=== PATIENT | female | born 1990 | race Caucasian/White ===

== ENCOUNTER 2019-03-23 08:22 | Emergency (ER) | payer SELFPAY ==
--- NOTE | 2019-03-23 09:27 | ER Document Report ---
ED Medical Screen (RME) - General Chief Complaint: Abdominal Pain Stated Complaint: ABDOMINAL PAIN Time Seen by Provider: 03/23/19 09:17 Mode of Arrival: Ambulatory Information source: Patient, Relative TRAVEL OUTSIDE OF THE [place] IN LAST 30 DAYS: No - HPI Patient complains to provider of: LEFT PELVIC PAIN Notes: 03/23/19 09:24 Patient is here with a relative at the bedside is helping with communication as the patient speaks French. Patient here with complaints of left pelvic pain. Pain started yesterday. It has been constant and moderate. Nothing makes it better or worse. She had nausea and vomited once. No diarrhea. No dysuria or hematuria. Last normal menstrual period was sometime in December. She states that she took a test in January, this was negative. She has had one prior that ended in miscarriage. No history of ectopic . No fever. Exam Nontoxic, no distress. Lungs clear and equal throughout. Heart sounds normal. Left lower quadrant/pelvic tenderness on limited triage abdominal exam. Plan CBC, CMP, lipase, urinalysis. Urine . This the patient is having pelvic pain and has a history of ovarian cysts I have ordered a pelvic ultrasound. This would evaluate for cysts/ovarian torsion. If she ends up being , this would also evaluate for ectopic . An initial examination was made on the patient as part of the triage process, and it was determined a more comprehensive evaluation was necessary. Initial labs were ordered and patient was transferred to another provider in the ED who assumed care and finished evaluation and plan. - Related Data Allergies/Adverse Reactions: No Known Allergies Allergy (Verified 03/23/19 08:24) Physical Exam - Vital signs Vitals: Temp Pulse Resp BP Pulse Ox 98.0 F 76 16 104/63 100 03/23/19 08:28 03/23/19 08:28 03/23/19 08:28 03/23/19 08:28 03/23/19 08:28 Course - Vital Signs Vital signs: Temp Pulse Resp BP Pulse Ox 98.0 F 76 16 104/63 100 03/23/19 08:28 03/23/19 08:28 03/23/19 08:28 03/23/19 08:28 03/23/19 08:28
[2019-03-23 09:59] LABS: ABSOLUTE LYMPHOCYTES (AUTO) 1.2 10^3/uL (0.5-4.7); ABSOLUTE MONOCYTES (AUTO) 0.2 10^3/uL (0.1-1.4); ABSOLUTE NEUT (AUTO) 5.4 10^3/uL (1.7-8.2); BASOPHILS % (AUTO) 0.2 % (0-2); HEMATOCRIT 37.8 % (36.0-47.0); HEMOGLOBIN 12.8 g/dL (12.0-15.5); LYMPHOCYTES % (AUTO) 17.2 % (13-45); MEAN CORPUSCULAR HEMOGLOBIN 29.7 pg (27.0-33.4); MEAN CORPUSCULAR HGB CONC 33.8 g/dL (32.0-36.0); MEAN CORPUSCULAR VOLUME 88 fl (80-97); MONOCYTES % (AUTO) 2.9 % (3-13); PLATELET COUNT 234 10^3/uL (150-450); RED BLOOD COUNT 4.29 10^6/uL (3.72-5.28); SEGMENTED NEUTROPHILS % (AUTO) 79.7 % (42-78); TOTAL CELLS COUNTED % (AUTO) 100 %; WHITE BLOOD COUNT 6.8 10^3/uL (4.0-10.5)
[2019-03-23 10:07] LABS: APPEARANCE,URINE SLIGHTLY-CLOUDY; BILIRUBIN,URINE NEGATIVE (NEGATIVE); COLOR,URINE YELLOW; GLUCOSE, URINE NEGATIVE (NEGATIVE); KETONES,URINE TRACE mg/dL (NEGATIVE); LEUKOCYTE ESTERASE,URINE NEGATIVE (NEGATIVE); NITRITE,URINE NEGATIVE (NEGATIVE); PROTEIN,URINE NEGATIVE (NEGATIVE); URINE SPECIFIC GRAVITY 1.018; UROBILINOGEN,URINE NEGATIVE mg/dL (<2.0)
--- NOTE | 2019-03-23 10:13 | RADIOLOGY REPORT (SQ) ---
EXAM DESCRIPTION: U/S NON OB PEL TV W/DOPPLER COMPLETED DATE/TIME: 03/23/2019 9:58 am REASON FOR STUDY: pelvic pain COMPARISON: None. TECHNIQUE: Dynamic and static grayscale images acquired of the pelvis via transvaginal approach and recorded on PACS. Additional selected color Doppler and spectral images recorded. LIMITATIONS: None. FINDINGS: UTERUS: Contour normal. No mass. ENDOMETRIAL STRIPE: No focal or generalized thickening. No masses. CERVIX: No nabothian cysts. RIGHT OVARY AND DOPPLER: Normal size. No worrisome masses. Normal arterial vascular flow without evid ence for torsion. LEFT OVARY AND DOPPLER: Normal vascular flow. 2.5 cm cyst. FREE FLUID: Minimal free fluid knee adnexum. OTHER: No other significant finding. MEASUREMENTS: UTERUS: 9.3 cm ENDOMETRIAL STRIPE: 1.2 cm RIGHT OVARY: 2.5 cm LEFT OVARY: 5.8 cm IMPRESSION: 2.5 cm left ovarian cyst. Minimal free fluid both adnexum. . COMMENT: Followup of asymptomatic benign ovarian cysts detected by ultrasound in PREMENOPAUSAL jesse ents Simple cyst: *? 5 cm: no followup *Note: If cyst is clinically symptomatic or otherwise concerning, other followup may be warranted. Based on recommendations of the Society for Radiologists in Ultrasound Consensus Conference Statement 2010 on management of asymptomatic ovarian and other adnexal cysts imaged at ultrasound. TECHNICAL DOCUMENTATION: JOB ID: [id number] [employer]- All Rights Reserved Rev-04/06 Reading location - IP/workstation name: [email or web address]
[2019-03-23] MEDS ORDERED: KETOROLAC TROMETHAMINE 60 MG/2 ML SDV IM ONE (10:16)
[2019-03-23 10:17] LABS: ALANINE AMINOTRANSFERASE 27 U/L (9-52); ALBUMIN 4.1 g/dL (3.5-5.0); ALKALINE PHOSPHATASE 47 U/L (38-126); ANION GAP 9 (5-19); ASPARTATE AMINO TRANSFERASE 19 U/L (14-36); BILIRUBIN,DIRECT 0.1 mg/dL (0.0-0.4); BILIRUBIN,TOTAL 0.4 mg/dL (0.2-1.3); BLOOD UREA NITROGEN 13 mg/dL (7-20); CALCIUM 9.4 mg/dL (8.4-10.2); CARBON DIOXIDE 27 mmol/L (22-30); CHLORIDE 103 mmol/L (98-107); GLUCOSE 98 mg/dL (75-110); LIPASE 46.3 U/L (23-300); POTASSIUM 3.9 mmol/L (3.6-5.0); SODIUM 138.9 mmol/L (137-145); TOTAL PROTEIN 7.1 g/dL (6.3-8.2)
[2019-03-23] MEDS ORDERED: ONDANSETRON 4 MG TAB.RAPDIS PO ONE (10:35)
--- NOTE | 2019-03-23 10:40 | ER Document Report ---
ED General - General Chief Complaint: Abdominal Pain Stated Complaint: ABDOMINAL PAIN Time Seen by Provider: 03/23/19 09:17 Primary Care Provider: [facility] [Provider Group] - Follow up in 3-5 days Mode of Arrival: Ambulatory Information source: Patient, Relative Notes: 29-year-old female with history of ovarian cyst presents with complaint of left lower quadrant abdominal pain that started 1 day prior to arrival. Patient describes it as stabbing, constant and associated with nausea. Patient's last menstrual period was in January 2019. Patient denies any fever, chills, chest pain, shortness of breath, dysuria, hematuria, vaginal discharge. She is not currently sexually active. Patient's last bowel movement was yesterday. She denies any black or bloody stools or history of constipation. TRAVEL OUTSIDE OF THE [place] IN LAST 30 DAYS: No - HPI Onset: Yesterday Onset/Duration: Gradual, Persistent, Worse Quality of pain: Cramping, Stabbing Severity: Moderate Associated symptoms: Nausea. denies: Chest pain, Diarrhea, Vomiting, Shortness of breath Exacerbated by: Denies Relieved by: Denies Similar symptoms previously: Yes Recently seen / treated by doctor: No - Related Data Allergies/Adverse Reactions: No Known Allergies Allergy (Verified 03/23/19 08:24) Past Medical History - General Information source: Patient, Relative - Social History Smoking Status: Never Smoker Chew tobacco use (# tins/day): No Frequency of alcohol use: None Drug Abuse: None Lives with: Family Family History: Reviewed & Not Pertinent Patient has suicidal ideation: No Patient has homicidal ideation: No Renal/ Medical History: Reports: Hx Ovarian Cysts. Denies: Hx Peritoneal Dialysis Review of Systems - Review of Systems Notes: REVIEW OF SYSTEMS: CONSTITUTIONAL : Denies fever, chills, or sweats. Denies recent illness. Denies weight loss, recent hospitalizations. EENT: Denies visual changes, eye pain. Denies sore throat, oral lesions, difficulty swallowing. CARDIOVASCULAR: Denies chest pain. Denies palpitations. Denies lower extremity edema. RESPIRATORY: Denies cough. Denies shortness of breath, wheezing. GASTROINTESTINAL: Denies abdominal distention. Denies vomiting, or diarrhea. Denies blood in vomitus, stools, or per rectum. Denies black, tarry stools. Denies constipation. GENITOURINARY: Denies difficulty urinating, painful urination, frequency, blood in urine, or vaginal discharge. MUSCULOSKELETAL: Denies back or neck pain or stiffness. Denies joint pain or swelling. SKIN: Denies rash, lesions or sores. HEMATOLOGIC : Denies easy bruising or bleeding. LYMPHATIC: Denies swollen glands. NEUROLOGICAL: Denies confusion or altered mental status. Denies loss of consciousness. Denies dizziness or lightheadedness. Denies headache. Denies weakness or paralysis. Denies problems difficulty with ambulation, slurred speech. Denies sensory loss, numbness, or tingling. Denies seizures. PSYCHIATRIC: Denies anxiety or stress. Denies depression, suicidal ideation, or homicidal ideation. Denies visual or auditory hallucinations. Physical Exam - Vital signs Vitals: Temp Pulse Resp BP Pulse Ox 98.0 F 76 16 104/63 100 03/23/19 08:28 03/23/19 08:28 03/23/19 08:28 03/23/19 08:28 03/23/19 08:28 - Notes Notes: PHYSICAL EXAMINATION: GENERAL: Well-appearing, well-nourished and in no acute distress. HEAD: Atraumatic, normocephalic. EYES: Pupils equal round and reactive to light, extraocular movements intact, conjunctiva are normal. ENT: Nares patent, oropharynx clear without exudates. Moist mucous membranes. NECK: Normal range of motion, supple without lymphadenopathy LUNGS: Breath sounds clear to auscultation bilaterally and equal. No wheezes rales or rhonchi. HEART: Regular rate and rhythm without murmurs ABDOMEN: Soft, nontender, nondistended abdomen. No guarding, no rebound. No masses appreciated. Female : Pelvic exam; External genitalia unremarkable. Speculum exam with no discharge. Vaginal wall unremarkable. Os closed. No cervical motion tenderness. No adnexal tenderness or masses appreciated. Musculoskeletal: Normal range of motion, no pitting or edema. No cyanosis. NEUROLOGICAL: Cranial nerves grossly intact. Normal speech, normal gait. Normal sensory, motor exams PSYCH: Normal mood, normal affect. SKIN: Warm, Dry, normal turgor, no rashes or lesions noted. Course - Re-evaluation Re-evalutation: 03/23/19 10:36 Laboratory 03/23/19 03/23/19 03/23/19 09:35 09:35 09:35 WBC 6.8 RBC 4.29 Hgb 12.8 Hct 37.8 MCV 88 MCH 29.7 MCHC 33.8 RDW 13.0 Plt Count 234 Seg Neutrophils % 79.7 H Lymphocytes % 17.2 Monocytes % 2.9 L Eosinophils % 0.0 Basophils % 0.2 Absolute Neutrophils 5.4 Absolute Lymphocytes 1.2 Absolute Monocytes 0.2 Absolute Eosinophils 0.0 Absolute Basophils 0.0 Sodium 138.9 Potassium 3.9 Chloride 103 Carbon Dioxide 27 Anion Gap 9 BUN 13 Creatinine 0.52 Est GFR ( Amer) > 60 Est GFR (Non-Af Amer) > 60 Glucose 98 Calcium 9.4 Total Bilirubin 0.4 Direct Bilirubin 0.1 Neonat Total Bilirubin Not Reportable Neonat Direct Bilirubin Not Reportable Neonat Indirect Bili Not Reportable AST 19 ALT 27 Alkaline Phosphatase 47 Total Protein 7.1 Albumin 4.1 Lipase 46.3 Urine Color YELLOW Urine Appearance SLIGHTLY-CLOUDY Urine pH 7.0 Ur Specific Coward 1.018 Urine Protein NEGATIVE Urine Glucose (UA) NEGATIVE Urine Ketones TRACE H Urine Blood NEGATIVE Urine Nitrite NEGATIVE Urine Bilirubin NEGATIVE Urine Urobilinogen NEGATIVE Ur Leukocyte Esterase NEGATIVE Urine WBC (Auto) 0 Urine RBC (Auto) 1 U Hyaline Cast (Auto) 1 Urine Bacteria (Auto) TRACE Squamous Epi Cells Auto 2 Urine Mucus (Auto) MOD Urine Ascorbic Acid NEGATIVE Urine HCG, Qual NEGATIVE Transvaginal US 03/23/19 09:23 IMPRESSION: 2.5 cm left ovarian cyst. Minimal free fluid both adnexum. . Temp Pulse Resp BP Pulse Ox 98.0 F 76 16 104/63 100 03/23/19 08:28 03/23/19 08:28 03/23/19 08:28 03/23/19 08:28 03/23/19 08:28 29-year-old female presents with left lower quadrant pain that started yester day. Vital signs reviewed and within normal limits. Patient does have some mild tenderness with palpation to the left lower quadrant without guarding or rebound. CBC, CMP, urinalysis and urine tests are unremarkable. Transvaginal ultrasound was obtained and significant for 2.5 cm left ovarian cyst without evidence of torsion. Patient did receive Toradol and Zofran during her ED course. She will be discharged home with anti-inflammatory medications and recommendations to follow-up with OB. Patient was evaluated and treated as appropriate for the patient's presenting symptoms and complaint, with consideration of any critical or life threatening conditions that may be associated with their obtained history and exam as noted above. 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 Patient provided the opportunity to ask questions, and express concerns. Patient was educated on treatments based on their presumed diagnosis as noted above. At this time we will discharge the patient with return precautions and follow-up recommendations. Verbal discharge instructions given a the bedside. Medication warnings reviewed. Patient is in agreement with this plan and has verbalized understanding of return precautions. After careful consideration I feel that that patient can be safely discharged from the emergency department, they were advised to followup with a primary care physician in 2-3 days. Dictation on this chart was performed using voice recognition software and may result in unintended grammatical, spelling, syntax or errors. - Vital Signs Vital signs: Temp Pulse Resp BP Pulse Ox 98.0 F 76 16 104/63 100 03/23/19 08:28 03/23/19 08:28 03/23/19 08:28 03/23/19 08:28 03/23/19 08:28 - Laboratory Result Diagrams: 03/23/19 09:35 03/23/19 09:35 Laboratory results interpreted by me: 03/23/19 03/23/19 09:35 09:35 Seg Neutrophils % 79.7 H Monocytes % 2.9 L Urine Ketones TRACE H - Diagnostic Test Radiology reviewed: Image reviewed, Reports reviewed Discharge - Discharge Clinical Impression: Nausea Abdominal pain Qualifiers: Abdominal location: left lower quadrant Qualified Code(s): R10.32 - Left lower quadrant pain Ovarian cyst Qualifiers: Laterality: left Qualified Code(s): N83.202 - Unspecified ovarian cyst, left side Condition: Good Disposition: HOME, SELF-CARE Instructions: Ovarian Cyst ([facility]) Additional Instructions: Follow up with your [id number] hours for further care or return to the ED IMMEDIATELY if symptoms worsen or you have any concerns. If you cannot afford to follow up with your primary care physician a list of low cost clinics have been provided at the end of your discharge papers as well. Most prescribed medications have multiple side effects. The safest thing to do is when filling your prescription speak to your pharmacist regarding possible interactions with your normal home medications and over the counter medications such as Ibuprofen, Tylenol, Benadryl. If you experience any symptoms that cause you discomfort or concern you should discontinue the medication immediately and return to the emergency room or call your primary care physician. Prescriptions: Hydrocodone/Acetaminophen [Biloxi 5-325 mg Tablet] 1 tab PO Q6H #8 tablet Naproxen [Naprosyn] 500 mg PO Q12H PRN #14 tablet PRN Reason: Ondansetron [Zofran Odt 4 mg Tablet] 1 - 2 tab PO Q4H PRN #15 tab.rapdis PRN Reason: For Nausea/Vomiting Referrals: [facility] [Provider Group] - Follow up in 3-5 days
[2019-03-23 11:37] VITALS: BP 112/66
== END 2019-03-23 11:34 | disposition home or self-care (01) ==
LOC: ER 08:22
DX: N83.202 Unspecified ovarian cyst, left side (principal); R10.32 Left lower quadrant pain; R11.0 Nausea
CPT/HCPCS: 99284; 96372; 36415; 83690; 85025; 81025; 80053; 81001; 76830; 93976; J1885

== ENCOUNTER → 2019-12-11 | Outpatient (CLI) | payer SELFPAY ==
--- NOTE | 2019-12-11 15:01 | RADIOLOGY REPORT (SQ) ---
EXAM DESCRIPTION: U/S HT5OAHO TRNABD 1GES W/ODOP COMPLETED DATE/TIME: 12/11/2019 2:52 pm REASON FOR STUDY: Z34.01 ENCNTR FOR SUPRVSN OF NORMAL FIRST PREG, FIRST TRIMESTER Z34.01 ENCNTR FOR SUPRVSN OF NORMAL FIRST PREG, FIRST TRIMES COMPARISON: None. TECHNIQUE: Transabdominal static and realtime grayscale images acquired of the pelvis. Additional se lected spectral and color Doppler images recorded. All images stored on PACs. bHCG: Not available. CLINICAL DATES: Not available. LIMITATIONS: None. FINDINGS: FETUS: Single Living intrauterine . ULTRASOUND EGA: 6 weeks 6 days. ULTRASOUND SETH: 07/30/2020 EFW: Not applicable less than 20 weeks. CRL: 8.8 mm. FHR: 149 beats per minute. SURVEY: Too early to assess. AMNIOTIC FLUID: Too early to assess. PLACENTA: Not yet developed due to early gestation. SUBCHORIONIC BLEED: No. SIZE OF BLEED: Not applicable. UTERUS: No masses. No anomalies. CERVICAL LENGTH: 3.7 cm. Closed. RIGHT ADNEXA: Ovary not identified due to poor acoustical window. No adnexal free fluid. No adnexal masses. LEFT ADNEXA: Ovary not identified due to poor acoustical window. No adnexal free fluid. No adnexal masses. FREE FLUID: None. OTHER: None. IMPRESSION: LIVING INTRAUTERINE . EGA 6 WEEKS 6 DAYS. Trimester of : First trimester - 0 to 13 weeks. TECHNICAL DOCUMENTATION: JOB ID: [id number] [employer]- All Rights Reserved Reading location - IP/workstation name: [email or web address]
== END ==
LOC: RAD 14:10
PROVIDERS: ATTEND Nurse Practitioner Family
DX: Z34.01 Encounter for supervision of normal first pregnancy, first trimester (principal)
CPT/HCPCS: 76801

== ENCOUNTER 2019-12-20 19:09 | Emergency (ER) | payer MEDICAID ==
--- NOTE | 2019-12-20 21:18 | ER Document Report ---
ED Medical Screen (RME) - General Chief Complaint: Vag Bleeding, +preg <12wks Stated Complaint: VAGINAL BLEEDING 8 WEEKS PREG Time Seen by Provider: 12/20/19 21:14 Primary Care Provider: BRITT JIMENEZ ARNP [Primary Care Provider] - Follow up as needed Mode of Arrival: Ambulatory Information source: Patient Notes: 29-year-old female presented to ED for vaginal bleeding and pelvic pain. She states she was seen at [facility] on 09 December and she was 6 weeks 6 days at that time she did have an ultrasound at this hospital which I did look at and it did say 6 weeks 6 days . She states she is having increasing bleeding and she is concerned she is also having pelvic pain. Will repeat blood and urine. She does not speak Kosovan. Valeriano the nurse was able to speak with patient. I have greeted and performed a rapid initial assessment of this patient. A comprehensive ED assessment and evaluation of the patient, analysis of test results and completion of medical decision making process will be conducted by an additional ED providers. TRAVEL OUTSIDE OF THE [place] IN LAST 30 DAYS: No - Related Data Allergies/Adverse Reactions: No Known Allergies Allergy (Verified 03/23/19 08:24) Past Medical History Renal/ Medical History: Reports: Hx Ovarian Cysts. Denies: Hx Peritoneal Dialysis Doctor's Discharge - Discharge Referrals: BRITT JIMENEZ ARNP [Primary Care Provider] - Follow up as needed
[2019-12-20 22:25] LABS: APPEARANCE,URINE CLEAR; BILIRUBIN,URINE NEGATIVE (NEGATIVE); COLOR,URINE STRAW; GLUCOSE, URINE NEGATIVE (NEGATIVE); KETONES,URINE NEGATIVE (NEGATIVE); PROTEIN,URINE NEGATIVE (NEGATIVE); UROBILINOGEN,URINE NEGATIVE mg/dL (<2.0)
[2019-12-20 22:46] LABS: ALKALINE PHOSPHATASE 44 U/L (38-126); ANION GAP 10 (5-19); ASPARTATE AMINO TRANSFERASE 25 U/L (14-36); BILIRUBIN,DIRECT 0.2 mg/dL (0.0-0.4); BILIRUBIN,TOTAL 0.3 mg/dL (0.2-1.3); BLOOD UREA NITROGEN 11 mg/dL (7-20); CALCIUM 9.4 mg/dL (8.4-10.2); CARBON DIOXIDE 26 mmol/L (22-30); CHLORIDE 99 mmol/L (98-107); GLUCOSE 82 mg/dL (75-110); POTASSIUM 3.8 mmol/L (3.6-5.0)
--- NOTE | 2019-12-21 04:03 | RADIOLOGY REPORT (SQ) ---
EXAM DESCRIPTION: US LESS THAN 14 WEEKS COMPLETED DATE/TME: 12/21/2019 02:41 CLINICAL HISTORY: 29 years, Female, approx 7-8 wk , vaginal bleeding COMPARISON: 12/11/2019 TECHNIQUE: Transabdominal pelvic ultrasound with grayscale and color images. LIMITATIONS: None. FINDINGS: Uterus: Anteverted. Measures 9.8 x 6.5 x 7.4 cm. The cervix is closed and measures 3.1 cm in length. Endometrium: Intrauterine gestational sac. Gestational sac: Shape is oval. Fetus: CRL measures 2.0 cm. Heart rate: 163 bpm. Other: Subchorionic hematoma: Two subchorionic hemorrhages, which measure 1.9 x 1.4 x 2.2 cm on the right and 2.6 x 0.8 x 2.5 cm on the left. Amniotic fluid: Subjectively within normal limits. Maternal ovaries: Right: Measures 2.7 x 2.7 x 3.3 cm. Normal doppler flow. Left: Measures 4.1 x 2.5 x 3.8 cm. Normal doppler flow. Clinical: LMP: 10/18/2019. MA: Nine weeks one day. SETH: 07/24/2020. Ultrasound: MA: 8 weeks four days. SETH: 07/28/2020. IMPRESSION: Single live intrauterine , as described above. copyright 2010 [employer]- All Rights Reserved
--- NOTE | 2019-12-21 04:12 | ER Document Report ---
ED General - General Chief Complaint: Vag Bleeding, +preg <12wks Stated Complaint: VAGINAL BLEEDING 8 WEEKS PREG Time Seen by Provider: 12/20/19 21:14 Primary Care Provider: BRITT JIMENEZ ARNP [NO LOCAL MD] - Follow up as needed Mode of Arrival: Ambulatory Notes: 29-year-old G1, P0 female presents for vaginal bleeding that started today. Patient is approximately 7 to 8 weeks . [facility] Patient states that she also has some associated pelvic cramping. Patient states that the bleeding has improved. Patient states she has had mild nausea since she found out she was . Patient denies any vomiting, fever, chest pain, shortness of breath. 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 IN LAST 30 DAYS: No - Related Data Allergies/Adverse Reactions: No Known Allergies Allergy (Verified 03/23/19 08:24) Past Medical History - General Information source: Patient - Social History Smoking Status: Never Smoker Family History: Reviewed & Not Pertinent Patient has suicidal ideation: No Patient has homicidal ideation: No Renal/ Medical History: Reports: Hx Ovarian Cysts. Denies: Hx Peritoneal Dialysis Past Surgical History: Reports: Hx Breast Surgery - implants Review of Systems - Review of Systems Notes: Constitutional: Negative for fever. HENT: Negative for sore throat. Eyes: Negative for visual changes. Cardiovascular: Negative for chest pain. Respiratory: Negative for shortness of breath. Gastrointestinal: Positive for nausea. Negative for abdominal pain, vomiting or diarrhea. Genitourinary: Positive for vaginal bleeding and pelvic cramping. Negative for dysuria. Musculoskeletal: Negative for back pain. Skin: Negative for rash. Neurological: Negative for headaches, weakness or numbness. 10 point ROS negative except as marked above and in HPI. Physical Exam - Vital signs Vitals: Temp Pulse Resp BP Pulse Ox 98.1 F 65 16 106/73 100 12/21/19 01:28 12/21/19 01:28 12/21/19 01:12/21/19 01:12/21/19 01:28 - Notes Notes: GENERAL: Well-appearing, well-nourished and in no acute distress. HEAD: Atraumatic, normocephalic. EYES: Extraocular movements intact, sclera anicteric, conjunctiva are normal. NECK: Normal range of motion, supple without lymphadenopathy or JVD. ABDOMEN: Soft, nontender. No guarding, no rebound. No masses appreciated. PELVIC: Declined. EXTREMITIES: Normal range of motion, no pitting or edema. No clubbing or cyanosis. NEUROLOGICAL: Cranial nerves II through XII grossly intact. Normal speech, normal gait. PSYCH: Normal mood, normal affect. SKIN: Warm, Dry, normal turgor, no rashes or lesions noted. Course - Re-evaluation Re-evalutation: 12/21/19 29-year-old G1, P0 female presents for vaginal bleeding. Patient is approximately 8 weeks . Abdomen soft nontender. Pelvic deferred at this time. Patient blood type is O+. Patient had an ultrasound on 12/11 when shows that she was 6 weeks 6 days . Patient is nontoxic, well- appearing. Lab work is reassuring. Ultrasound shows single live IUP that is approximately 8 weeks 4 days. Heart rate of 163 bpm. Patient also has 2 subchorionic hemorrhages. Discussed all results with patient. Patient given close follow-up with [employer]. Strict return precautions given. Patient voices understanding and agrees with plan of care. - Vital Signs Vital signs: Temp Pulse Resp BP Pulse Ox 98.1 F 65 16 106/73 100 12/21/19 01:28 12/21/19 01:28 12/21/19 01:28 12/21/19 01:28 12/21/19 01:28 - Laboratory Result Diagrams: 12/20/19 21:54 12/20/19 21:54 Laboratory results interpreted by me: 12/20/19 12/20/19 21:54 21:54 Sodium 134.6 L Creatinine 0.37 L Beta HCG, Quant 625806.00 H Urine Blood SMALL H Discharge - Discharge Clinical Impression: Threatened Condition: Stable Disposition: HOME, SELF-CARE Instructions: Threatened Miscarriage ([facility]) Additional Instructions: Your ultrasound shows an intrauterine at approximately 8 weeks 4 days with a heart rate of 163 bpm which is normal. Also shows 2 subchorionic hemorrhages. Please follow-up with your [employer] in 3 to 4 days. Return immedi ately to ER if you start having any worsening symptoms, including worsening bleeding, having clots, vomiting not controlled by medication, abdominal pain, fever, pelvic pain, chest pain, shortness of breath, or any other symptoms that are concerning to you. Joyce ultrasonido muestra un embarazo intrauterino aproximadamente a las 8 semanas y 4 alvarez con ashish frecuencia cardaca de 163 lpm, lo cual es normal. Tambin muestra 2 hemorragias subcorinicas. Kirstin un seguimiento con joyce obstetra / gineclogo en 3 a 4 alvarez. Regrese de inmediato a la sherman de emergencias si comienza a tener sntomas que empeoran, incluido el empeoramiento del sangrado, cogulos, vmitos no controlados por medicamentos, dolor abdominal, fiebre, dolor plvico, dolor en el pecho, falta de aliento o cualquier otro sntoma que le preocupe. Referrals: BRITT JIMENEZ ARNP [NO LOCAL MD] - Follow up as needed [facility] [Provider Group] - Follow up in 3-5 days
[2019-12-21 04:43] VITALS: BP 107/61
== END 2019-12-21 04:45 | disposition home or self-care (01) ==
LOC: ER 19:09
DX: O20.0 Threatened abortion (principal); O26.899 Other specified pregnancy related conditions, unspecified trimester; R10.2 Pelvic and perineal pain; R11.0 Nausea; Z3A.00 Weeks of gestation of pregnancy not specified
CPT/HCPCS: 36415; 76801; 80053; 81001; 84702; 86900; 86901; 93976; 99284

== ENCOUNTER 2020-07-28 12:48 | Inpatient (IN) | payer MEDICAID ==
[2020-07-28 13:30] LABS: APPEARANCE,URINE CLOUDY; BILIRUBIN,URINE NEGATIVE (NEGATIVE); COLOR,URINE YELLOW; GLUCOSE, URINE NEGATIVE (NEGATIVE); KETONES,URINE NEGATIVE (NEGATIVE); LEUKOCYTE ESTERASE,URINE SMALL (NEGATIVE); NITRITE,URINE NEGATIVE (NEGATIVE); PROTEIN,URINE 30 mg/dL (NEGATIVE); URINE SPECIFIC GRAVITY 1.011; UROBILINOGEN,URINE NEGATIVE mg/dL (<2.0)
[2020-07-28 13:49] LABS: URINE AMPHETAMINES SCREEN NEGATIVE; URINE BARBITURATES SCREEN NEGATIVE; URINE BENZODIAZEPINES SCREEN NEGATIVE; URINE COCAINE SCREEN NEGATIVE; URINE MARIJUANA (THC) SCREEN NEGATIVE; URINE METHADONE SCREEN NEGATIVE; URINE PHENCYCLIDINE SCREEN NEGATIVE
[2020-07-28] MEDS ORDERED: RINGERS SOLUTION,LACTATED 1,000 ML IV ONE (13:54)
[2020-07-28] MEDS ORDERED: RINGERS SOLUTION,LACTATED 1,000 ML IV PRN (13:54)
--- NOTE | 2020-07-28 14:00 | Admission Physical ---
Datetime Report Generated by CPN: 07/28/2020 14:00 CURRENT ADMISSION Chief Complaint: Suspected Ruptured Membranes Admit Impression : Term, Intrauterine ; Active Labor Admit Impression- Other: +Acti-prom Admit Plan: Admit to Unit; Initiate Labor Protocol ALLERGIES Medication Allergies: No Medication Allergies: No Known Allergies (03/23/2019) Latex: Latex Allergies OBSTETRICAL HISTORY EDC: 07/25/2020 00:00 : 1 Para: 0 Term: 0 : 0 SAB: 0 IAB: 0 Cesareans: 0 VBACs: 0 Gestational Diabetes: No Rh Sensitization: No Incompetent Cervix: No BUNNY: No Infertility: No ART Treatment: No Uterine Anomaly: No IUGR: No Hx Previous C/S: No Macrosomia: No Hx Loss/Stillborn: No PIH: No Hx : No Placenta Previa/Abruption: No Depression/PP Depression: No PTL/PROM: No Post Hemorrhage: No Obstetrical History Comments: G1: current SEE RECORDS Alcohol: No Marijuana : No Cocaine: No Other Illicit Drugs: No Cigarettes: Never Smoker. [id number] MEDICAL HISTORY Diabetes: No Blood Transfusion: No Pulmonary Disease (Asthma, TB): No Breast Disease: No Hypertension: No Buckle Sewer Machine Surgery: No Heart Disease: No Hosp/Surgery: No Autoimmune Disorder: No Anesthetic Complications: No Kidney Disease: No Abnormal Pap Smear: No Neuro/Epilepsy: No Psychiatric Disorders: No Other Medical Diseases: No Hepatitis/Liver Disease: No Significant Family History: No Varicosities/Phlebitis: No Trauma/Violence : No Thyroid Dysfunction: No INFECTIOUS HISTORY Gonorrhea: No Genital Herpes: No Chlamydia: No Tuberculosis: No Syphilis: No Hepatitis: No HIV/AIDS Exposure: No Rash or Viral Illness: No HPV: No PHYSICAL EXAM General: Normal HEENT: Normal Neurologic: Normal Thyroid: Normal Heart: Normal Lungs: Normal Breast: Normal Back: Normal Abdomen: Normal Genitourinary Exam: Normal Extremities: Normal DTRs: Normal Pelvic Type: Adequate Vital Signs: Reviewed MEMBRANES Membranes: Ruptured Amniotic Fluid Color: Clear FETUS A EGA: 40.3 Monitoring: External US Admit Comment: at 40.4 wks presents c/o SROM at 1115 today. GBS negative. pt was 4 cm in the office on exam this morning. Pt now breathing thru the contractions. +Acti-prom. Pt desires epidural. Attending MD is Dr Brar. PLANS FOR LABOR AND DELIVERY Pain Management: Medications; Epidural Feeding Preference: Breast Circumcision: No INFORMED CONSENT Assignment: Arabella Brar MD Signature: with User ID: [email or web address] : with User ID: [email or web address]
[2020-07-28] MEDS ORDERED: FENTANYL/BUPIVACAINE/NS/PF 300 MCG/150 ML RTUINJ EPI ONE (14:01)
[2020-07-28] MEDS ORDERED: EPHEDRINE SULFATE INJ 50 MG/1 ML AMPULE ONE (14:01)
[2020-07-28] MEDS ORDERED: OXYTOCIN/0.9 % SODIUM CHLORIDE 30 UNIT/500 ML RTUINJ ONE (14:02)
[2020-07-28] MEDS ORDERED: ROPIVACAINE HCL 0.2% INJ/PF (2 MG/ML) 20 ML SDV ONE (14:02)
[2020-07-28] MEDS ORDERED: LIDOCAINE 1% INJ-PF (10 MG/ML) 30 ML SDV ONE (14:02)
[2020-07-28] MEDS ORDERED: OXYTOCIN 10 UNIT/ML VIAL ONE (14:02)
[2020-07-28] MEDS ORDERED: MISOPROSTOL 0.2 MG TABLET ONE (14:02)
[2020-07-28] MEDS ORDERED: NALBUPHINE HCL INJ 10 MG/1 ML AMPULE INJ ONE (14:27)
[2020-07-28] MEDS ORDERED: NALBUPHINE HCL INJ 10 MG/1 ML AMPULE ONE (14:27)
[2020-07-28] MEDS ORDERED: PROMETHAZINE HCL INJ 25 MG/1 ML VIAL ONE (14:28)
[2020-07-28] MEDS ORDERED: PROMETHAZINE HCL INJ 25 MG/1 ML VIAL IV ONE (14:28)
[2020-07-28 14:34] LABS: ABSOLUTE LYMPHOCYTES (AUTO) 1.9 10^3/uL (0.5-4.7); ABSOLUTE MONOCYTES (AUTO) 0.6 10^3/uL (0.1-1.4); ABSOLUTE NEUT (AUTO) 9.2 10^3/uL (1.7-8.2); BASOPHILS % (AUTO) 0.3 % (0-2); EOSINOPHILS % (AUTO) 0.3 % (0-6); HEMATOCRIT 35.7 % (36.0-47.0); HEMOGLOBIN 11.9 g/dL (12.0-15.5); LYMPHOCYTES % (AUTO) 15.9 % (13-45); MEAN CORPUSCULAR HEMOGLOBIN 27.4 pg (27.0-33.4); MEAN CORPUSCULAR HGB CONC 33.3 g/dL (32.0-36.0); MEAN CORPUSCULAR VOLUME 82 fl (80-97); MONOCYTES % (AUTO) 5.4 % (3-13); PLATELET COUNT 238 10^3/uL (150-450); RED BLOOD COUNT 4.34 10^6/uL (3.72-5.28); RED CELL DISTRIBUTION WIDTH 14.7 % (11.5-14.0); SEGMENTED NEUTROPHILS % (AUTO) 78.1 % (42-78); TOTAL CELLS COUNTED % (AUTO) 100 %; WHITE BLOOD COUNT 11.7 10^3/uL (4.0-10.5)
--- NOTE | 2020-07-28 15:58 | L&D Progress Notes ---
PROGRESS NOTES Datetime Report Generated by CPN: 07/28/2020 15:57 PROGRESS NOTE Impression: Normal Progression of Labor Procedures: Sterile Vag Exam Plan: Continue Present Management; Anticipate Vaginal Delivery Vital Signs : Reviewed; Within Normal Limits Comment: Epidural in place, pt is now comfortable. VE 7/-1, vtx. Position changes encouraged. Anticipate . Attending MD is Dr Brar LAST VAGINAL EXAM-NURSING Nursing Exam Dilitation: 4.0 Nursing Exam Effacement: 70 Nursing Exam Station: -1 Nursing Exam Contractions: RN at bedside, new toco applied MEMBRANES Membranes: Ruptured Amniotic Fluid Color: Clear FETUS A FHR - Baseline: 130 Monitoring: External US Variability: Moderate 6-25bpm Accelerations: 15X15 Decelerations: None FHR Category: Category I SIGNATURE SIGNATURE: [id number];13,[id number] Assignment: Arabella Brar MD Signature: with User ID: [email or web address] : with User ID: [email or web address]
[2020-07-28] MEDS ORDERED: OXYTOCIN/0.9 % SODIUM CHLORIDE 30 UNIT/500 ML RTUINJ IV PRN ×2 (18:03→23:33)
[2020-07-28] MEDS ORDERED: NA PHOS,M-B/NA PHOS,DI-BA (ADULT) 133 ML ENEMA PR PRN (23:33)
[2020-07-28] MEDS ORDERED: ACETAMINOPHEN 325 MG TABLET PO PRN (23:33)
[2020-07-28] MEDS ORDERED: GLYCERIN/WITCH HAZEL LEAF 1 EACH MED..WIPE TP PRN (23:33)
[2020-07-28] MEDS ORDERED: MAGNESIUM HYDROXIDE SUSP 30 ML UDCUP PO PRN (23:33)
[2020-07-28] MEDS ORDERED: BENZOCAINE/MENTHOL AEROSOL SPRAY 56 ML TOP PRN (23:33)
[2020-07-28] MEDS ORDERED: PSEUDOEPHEDRINE HCL 30 MG TABLET PO PRN (23:33)
[2020-07-28] MEDS ORDERED: PROMETHAZINE HCL 25 MG SUPP.RECT PR PRN (23:33)
[2020-07-28] MEDS ORDERED: ZOLPIDEM TARTRATE 5 MG TABLET PO PRN (23:33)
[2020-07-28] MEDS ORDERED: DIPHENHYDRAMINE HCL 25 MG CAPSULE PO PRN (23:33)
[2020-07-28] MEDS ORDERED: PROMETHAZINE HCL INJ 25 MG/1 ML VIAL IV PRN (23:33)
[2020-07-28] MEDS ORDERED: ACETAMINOPHEN WITH CODEINE #3 TABLET PO PRN ×2 (23:33)
[2020-07-28] MEDS ORDERED: MEASLES,MUMPS&RUBELLA VACC/PF 0.5 ML VIAL SUBCUT PRN (23:33)
[2020-07-28] MEDS ORDERED: DIBUCAINE 1% OINTMENT 28 GM TP PRN (23:33)
[2020-07-28] MEDS ORDERED: ACETAMINOPHEN 650 MG SUPP.RECT PR PRN (23:33)
[2020-07-28] MEDS ORDERED: PROMETHAZINE HCL 25 MG TABLET PO PRN (23:33)
[2020-07-28] MEDS ORDERED: DIPH/PERTUSS(ACELL)/TETANUS VAC/PF 0.5 ML SYR (>=10YO) IM PRN (23:33)
[2020-07-28] MEDS ORDERED: AMPICILLIN SOD/SULBACTAM 3 GM VIAL ONE (23:38)
[2020-07-28] MEDS ORDERED: ACETAMINOPHEN 325 MG TABLET ONE (23:45)
--- NOTE | 2020-07-29 01:35 | Birth Certificate Data ---
Cert Data Datetime Report Generated by CPN: 07/29/2020 01:35 RISK FACTORS IN THIS 49a. Diabetes: No (07/28/2020 13:16:Ernestine Amato RN) 49b. Hypertension: No (07/28/2020 13:16:Ernestine Amato RN) 49c. Previous Births: 0 (07/28/2020 13:16:Ernestine Amato RN) 49d. Stillborns: No (07/28/2020 13:16:Ernestine Amato RN) 49d. IUGR: No (07/28/2020 13:16:Ernestine Amato RN) 49e. Infertility Treatment: No (07/28/2020 13:16:Ernestine Amato RN) 49f. Previous Cesareans: 0 (07/28/2020 13:16:Ernestine Amato RN) Infections Present/Treated 53a. Gonorrhea: No (07/28/2020 13:16:Ernestine Amato RN) Results this Hospital Visit : Negative (07/28/2020 13:16:Ernestine Amato RN) 53b. Syphilis: No (07/28/2020 13:16:Ernestine Amato RN) 53c. Chlamydia: No (07/28/2020 13:16:Ernestine Amato RN) Results this Hospital Visit: Negative (07/28/2020 13:16:Ernestine Amato RN) 53d. Hepatitis B: No (07/28/2020 13:16:Ernestine Amato RN) Results this Hospital Visit: Negative (07/28/2020 13:16:Ernestine Amato RN) 53e. Hepatitis C: Negative (07/28/2020 13:16:Ernestine Amato RN) 53j. Test Result: Negative (07/28/2020 13:16:Ernestine Amato RN) Onset of Labor 56a. PROM >12 Hrs: -131.87 (07/28/2020 13:16:QS system process) 56b. Precipitous Labor <3 Hrs: 10 (07/28/2020 13:16:QS system process) 56c. Prolonged Labor > 20 Hrs: 10 (07/28/2020 13:16:QS system process) 57a. Induction of Labor: Augmentation (07/28/2020 13:16:MONROE Roth) 57c. Non-Vertex Presentation A: Vertex (07/28/2020 13:16:Janis Rosa RN) 57d. Steroids - Lung Mat: None (07/28/2020 13:16:MONROE Roth) 57d. Steroids - Lung Mat: Not Applicable (07/28/2020 13:16:MONROE Roth) 57f. Mat [place] or Temp >100.4: 100.3 (07/28/2020 13:16:MONROE Roth) 57g. Moderate/Heavy Meconium: Clear (Annotations: per pt) (07/28/2020 13:22:Ernestine Amato RN) 57h. Intolerance of Labor: N/A (07/28/2020 13:16:Janis Rosa RN) : N/A (07/28/2020 13:16:Janis Rosa RN) 57i. Epidural/Spinal Anesthesia: Epidural (07/28/2020 13:16:MONROE Roth) Method of Delivery 58a. Forceps - Unsuccessful A: N/A (07/28/2020 13:16:Mary Kay Bellavance, [facility]) 58b. Vacuum - Unsuccessful A: N/A (07/28/2020 13:16:Mary Kay Bellavance, [facility]) 58c. Presentation at 58c. Presentation at - A : Vertex (07/28/2020 13:16:Janis Rosa RN) 58c. Presentation at - A : N/A (07/28/2020 13:16:Janis Rosa RN) 58c. Presentation at - A : Cephalic (07/28/2020 20:11:Janis Rosa RN) Final Route and Method of Del 58d. Baby A Route/Delivery: Vaginal (07/28/2020 23:23:Janis Rosa RN) 58e. Trial of Labor Attempted: No (07/28/2020 13:16:Mary Kay Bellavance, RNC) 58e. Trial of Labor Attempted A: N/A (07/28/2020 13:16:Mary Kay Bellavance, RNC) 58e. Trial of Labor Attempted B: N/A (07/28/2020 13:16:Mary Kay Bellavance, RNC) Maternal Morbidity 59b. 3rd or 4th Degree Lacs: None (07/28/2020 13:16:Mary Kay Bellavance, RNC) Birthweight Baby A: 3638 (07/28/2020 13:16:Janis Rosa RN) 60a. Pounds : 8 (07/28/2020 13:16:QS system process) 60b. Ounces: 0 (07/28/2020 13:16:QS system process) 61. GA at Delivery Baby A: 40.3 (07/28/2020 13:16:Mary Kay Bellavance, RN) : Full Term- 39- 40.6 Weeks (07/28/2020 13:16:QS system process) 62a. 5 Minute Baby A: 9 (07/28/2020 13:16:QS system process)
--- NOTE | 2020-07-29 01:35 | Delivery Summary ---
Del Sum A-C Datetime Report Generated by CPN: 07/29/2020 01:35 DELIVERY PERSONNEL DELIVERY PERSONNEL: [id number] Delivery Doctor:: Arabella Brar MD Labor and Delivery Nurse:: Janis Rosa RNjava security architect Nurse:: MONROE Roth Nursing Care Partner/FILTER SCREEN CLEANER: Romana Ross, ST MATERNAL INFORMATION Delivery Anesthesia: Epidural Medications After Delivery: Pitocin 30 Units in 500ml NS/D5W Estimated Blood Loss (ml): 200 Delivery QBL: 220 Maternal Complications: None Provider Comments: uterine exploration and vaginal exam performed. superficial tears of laibal side trejo only. hemostatic LABOR SUMMARY EDC: 07/25/2020 00:00 Attempted: No Labor Anesthesia: Epidural LABOR INFORMATION Reason for Induction: Not Applicable Onset of Labor: 07/28/2020 13:05 Complete Dilatation: 07/28/2020 21:18 Oxytocin: Augmentation Group B Beta Strep: negative Antibiotics # of Doses: 0 Name of Antibiotic Given: 0 Steroids Given: None Reason Steroids Not Administered: Not Applicable MEMBRANES Membranes Rupture Method: Spontaneous Rupture of Membranes: 07/28/2020 11:15 Length of Rupture (hr): -131.87 Amniotic Fluid Color: Clear (Annotations: per pt) Amniotic Fluid Amount: Scant Amniotic Fluid Odor: Normal STAGES OF LABOR Stage 1 hr: 8 Stage 1 min: 13 Stage 2 hr: -141 Stage 2 min: -55 Stage 3 hr: 144 Stage 3 min: 3 Total Time in Labor hr: 10 Total Time in Labor min: 21 VAGINAL DELIVERY Episiotomy: None Laceration #1: None Laceration Extension #1: N/A Laceration Repair: Not Applicable Sponge Count Correct: N/A Sharps Count Correct: N/A CSECTION DELIVERY Primary Indication: N/A Secondary Indication: N/A CSection Incidence: N/A Labor: N/A Elective: N/A CSection Incision: N/A BABY A INFORMATION Delivery Date/Time: 07/22/2020 23:23 Method of Delivery: Vaginal Nurse Controlled Delivery: No Born in Route : No : N/A Forceps: N/A Vacuum Extraction: N/A Shoulder Dystocia : No PRESENTATION/POSITION BABY A Presentation: Cephalic Cephalic Presentation: Vertex Vertex Position: Right Occipital Anterior Breech Presentation: N/A PLACENTA INFORMATION BABY A Placenta Delivery Time : 07/28/2020 23:26 Placenta Method of Delivery: Spontaneous Placenta Status: Delivered SCORES BABY A Heart Rate 1 min: >100 bpm Resp Effort 1 min: Good Cry Reflex Irritability 1 min: Cough or Sneeze or Pulls Away Muscle Tone 1 min: Active Motion Color 1 min: Body [place], Extremities Blue Resuscitation Effort 1 min: Tactile Stimulation SCORE 1 MIN: 9 Heart Rate 5 min: >100 bpm Resp Effort 5 min: Good Cry Reflex Irritability 5 min: Cough or Sneeze or Pulls Away Muscle Tone 5 min: Active Motion Color 5 min: Body [place], Extremities Blue SCORE 5 MIN: 9 INFORMATION BABY A Gestational Age at Delivery: 40.3 Gestational Status: Full Term- 39- 40.6 Weeks Infant Outcome : Liveborn Condition : Stable Infant Sex: Male IDENTIFICATION BABY A Verification Date/Time: 07/28/2020 23:31 ID Band Number: [id number] Mother's Name Verified: Yes RN Verifying Infant: H Ross ST/D Bellavance RN WEIGHT/LENGTH BABY A Birthweight (gm): 3638 Infant Weight (lb): 8 Infant Weight (oz): 0 Length (in): 54.50 Infant Length (cm): 138.43 CORD INFORMATION BABY A No. Cord Vessels: 3 Nuchal Cord : Around Neck x1, Tight Cord Blood Taken: Yes-For Eval (Mom's Blood Type - or O+) Suction: None ASSESSMENT BABY A Complications: None Physical Findings at Delivery: Within Normal Limits Infant Respirations: Appears Normal Skin to Skin: Yes Neck Fitter/ALS Called : No Infant Care By: D Bellavance RN Transferred To: Remains with Mother BABY B INFORMATION : N/A SIGNATURES Signature: with User ID: [email or web address]
[2020-07-29] MEDS: AMPICILLIN SOD/SULBACTAM 3 GM VIAL IV SCH ×4 (01:36→22:14)
[2020-07-29] MEDS: FAMOTIDINE 20 MG TABLET PO SCH ×3 (02:57→21:15)
[2020-07-29] MEDS: IBUPROFEN 800 MG TABLET PO SCH ×3 (06:48→21:16)
[2020-07-29 08:11] LABS: HEMATOCRIT 27.7 % (36.0-47.0); MEAN CORPUSCULAR HEMOGLOBIN 27.7 pg (27.0-33.4); MEAN CORPUSCULAR HGB CONC 33.9 g/dL (32.0-36.0); MEAN CORPUSCULAR VOLUME 82 fl (80-97); PLATELET COUNT 199 10^3/uL (150-450); RED BLOOD COUNT 3.39 10^6/uL (3.72-5.28); WHITE BLOOD COUNT 18.7 10^3/uL (4.0-10.5)
[2020-07-29 08:20] LABS: HEMOGLOBIN 9.4 g/dL (12.0-15.5)
[2020-07-29] MEDS: SENNOSIDES/DOCUSATE 8.6-50 MG 1 EACH TABLET PO SCH (11:28)
[2020-07-29] MEDS: DOCUSATE SODIUM 100 MG CAPSULE PO SCH ×2 (11:28→17:27)
[2020-07-29] MEDS: PRENATAL VITAMIN W DHA CAPSULE PO SCH (11:28)
[2020-07-29] MEDS: FERROUS SULFATE 325 MG TABLET PO SCH ×2 (11:28→17:27)
[2020-07-29] MEDS ORDERED: IRON SUCROSE COMPLEX INJ/PF 100 MG/5 ML SDV IV ONE ×2 (11:45→17:45)
--- NOTE | 2020-07-29 13:29 | PDOC PROGRESS REPORT ---
Subjective-OB Progress Note for:: 07/29/20 Subjective: 30yo s/p vaginal delivery ppd1 . Pt ambulating, voiding and passing gas without difficulty. Reports pain well controlled with medication. No concerns today. Baby in NICU Physical Exam (OB) Vital Signs: Temp Pulse Resp BP Pulse Ox 97.6 F 72 16 100/51 L 98 07/29/20 07:59 07/29/20 07:59 07/29/20 07:59 07/29/20 07:59 07/29/20 07:59 Intake & Output 07/28/20 07/29/20 07/30/20 06:59 06:59 06:59 Intake Total 200 300 Output Total 900 Balance -700 300 - General General Appearance: Appears well In distress: None - PIH/Pre-Eclampsia Headache: Absent Epigastric Pain: No Visual Changes: No - Maternal Morbidity 59. Maternal Morbidity (serious complications experinced by the mother associated with labor and delivery: None of the above - Episiotomy/Laceration Site Condition: N/A - Lochia Lochia Amount: Small 10-25 ml Lochia Color: Rubra/Red - Abdomen Description: Soft Hernia Present: No Fundal Description: Firm, Midline, Non-Midline Describe if Not Midline: see nursing note. Fundal Height: u/u - u/2 - Respiratory Respiratory Status: No respiratory distress - Extremities Upper extremity: Normal inspection Lower extremities: Normal inspection - Neurological Cognition: Normal Orientation: AAOx4 - Psychological Associated symptoms: Normal affect, Normal mood Objective-Diagnostic Laboratory: 07/29/20 07:51 07/28/20 07/28/20 07/28/20 13:00 14:05 14:05 WBC 11.7 H RBC 4.34 Hgb 11.9 L Hct 35.7 L MCV 82 MCH 27.4 MCHC 33.3 RDW 14.7 H Plt Count 238 Seg Neutrophils % 78.1 H Urine Color YELLOW Urine Appearance CLOUDY Urine pH 8.0 Ur Specific [place] 1.011 Urine Protein 30 H Urine Glucose (UA) NEGATIVE Urine Ketones NEGATIVE Urine Blood LARGE H Urine Nitrite NEGATIVE Ur Leukocyte Esterase SMALL H Blood Type O POSITIVE Antibody Screen NEGATIVE 07/29/20 07:51 WBC 18.7 H RBC 3.39 L Hgb 9.4 L D Hct 27.7 L MCV 82 MCH 27.7 MCHC 33.9 RDW 15.0 H Plt Count 199 Seg Neutrophils % Urine Color Urine Appearance Urine pH Ur Specific [place] Urine Protein Urine Glucose (UA) Urine Ketones Urine Blood Urine Nitrite Ur Leukocyte Esterase Blood Type Antibody Screen Assessment and Plan(PN) - Assessment and Plan (1) Vaginal delivery Is this a current diagnosis for this admission?: Yes Plan: routine pp care (2) Maternal fever during labor, delivered Is this a current diagnosis for this admission?: Yes Plan: delivered, afebrile since arrival to (3) Acute blood loss anemia Is this a current diagnosis for this admission?: Yes Plan: increase dietary iron and FeSO4 BID IV iron ordered - Time Spent with Patient Time with patient: 15-25 minutes Medications reviewed and adjusted accordingly: Yes - Disposition Anticipated Discharge Disposition: Home, Self Care Anticipated Discharge Timeframe: within 24 hours
[2020-07-30] MEDS: IBUPROFEN 800 MG TABLET PO SCH ×2 (06:04→13:47)
[2020-07-30 08:40] VITALS: BP 98/66
--- NOTE | 2020-07-30 09:40 | PDOC DISCHARGE SUMMARY ---
Impression - Admit/DC Date/PCP Admission Date/Primary Care Provider: 07/28/20 13:57 SANTA ROMAN MD Discharge Date: 07/30/20 - Discharge Diagnosis (1) Acute blood loss anemia Is this a current diagnosis for this admission?: Yes (2) Maternal fever during labor, delivered Is this a current diagnosis for this admission?: Yes (3) Vaginal delivery Is this a current diagnosis for this admission?: Yes - Additional Information Discharge Diet: Regular Discharge Activity: Balance Activity w/Rest, Pelvic Rest Referrals: SANTA ROMAN MD [Primary Care Provider] - Prescriptions: Ibuprofen [Motrin 800 mg Tablet] 800 mg PO Q8HP PRN #90 tablet PRN Reason: Home Medications: Ibuprofen [Motrin 800 mg Tablet] 800 mg PO Q8HP PRN #90 tablet 07/30/20 Vit/Dha [ Multi + Dha Capsule] 1 cap PO DAILY capsule 07/30/20 Hospital Course Hospital Course: afebrile while on post unit 59. Maternal Morbidity (serious complications experinced by the mother associated with labor and delivery: None of the above Results Laboratory Results: WBC 18.7 10^3/uL (4.0-10.5) H 07/29/20 07:51 RBC 3.39 10^6/uL (3.72-5.28) L 07/29/20 07:51 Hgb 9.4 g/dL (12.0-15.5) L D 07/29/20 07:51 Hct 27.7 % (36.0-47.0) L 07/29/20 07:51 MCV 82 fl (80-97) 07/29/20 07:51 MCH 27.7 pg (27.0-33.4) 07/29/20 07:51 MCHC 33.9 g/dL (32.0-36.0) 07/29/20 07:51 RDW 15.0 % (11.5-14.0) H 07/29/20 07:51 Plt Count 199 10^3/uL (150-450) 07/29/20 07:51 Lymph % (Auto) 15.9 % (13-45) 07/28/20 14:05 Christian % (Auto) 5.4 % (3-13) 07/28/20 14:05 Eos % (Auto) 0.3 % (0-6) 07/28/20 14:05 Baso % (Auto) 0.3 % (0-2) 07/28/20 14:05 Absolute Neuts (auto) 9.2 10^3/uL (1.7-8.2) H 07/28/20 14:05 Absolute Lymphs (auto) 1.9 10^3/uL (0.5-4.7) 07/28/20 14:05 Absolute Monos (auto) 0.6 10^3/uL (0.1-1.4) 07/28/20 14:05 Absolute Eos (auto) 0.0 10^3/uL (0.0-0.6) 07/28/20 14:05 Absolute Basos (auto) 0.0 10^3/uL (0.0-0.2) 07/28/20 14:05 Seg Neutrophils % 78.1 % (42-78) H 07/28/20 14:05 Urine Color YELLOW 07/28/20 13:00 Urine Appearance CLOUDY 07/28/20 13:00 Urine pH 8.0 (5.0-9.0) 07/28/20 13:00 Ur Specific [place] 1.011 07/28/20 13:00 Urine Protein 30 mg/dL (NEGATIVE) H 07/28/20 13:00 Urine Glucose (UA) NEGATIVE mg/dL (NEGATIVE) 07/28/20 13:00 Urine Ketones NEGATIVE mg/dL (NEGATIVE) 07/28/20 13:00 Urine Blood LARGE (NEGATIVE) H 07/28/20 13:00 Urine Nitrite NEGATIVE (NEGATIVE) 07/28/20 13:00 Urine Bilirubin NEGATIVE (NEGATIVE) 07/28/20 13:00 Urine Urobilinogen NEGATIVE mg/dL (<2.0) 07/28/20 13:00 Ur Leukocyte Esterase SMALL (NEGATIVE) H 07/28/20 13:00 Urine Ascorbic Acid NEGATIVE (NEGATIVE) 07/28/20 13:00 Membranes Rupture POSITIVE (NEGATIVE) H 07/28/20 13:08 Urine Opiates Screen NEGATIVE 07/28/20 13:00 Urine Methadone Screen NEGATIVE 07/28/20 13:00 Ur Barbiturates Screen NEGATIVE 07/28/20 13:00 Ur Phencyclidine Scrn NEGATIVE 07/28/20 13:00 Ur Amphetamines Screen NEGATIVE 07/28/20 13:00 U Benzodiazepines Scrn NEGATIVE 07/28/20 13:00 Urine Cocaine Screen NEGATIVE 07/28/20 13:00 U Marijuana (THC) Screen NEGATIVE 07/28/20 13:00 RPR NONREACTIVE (NONREACTIVE) 07/28/20 14:05 Blood Type O POSITIVE 07/28/20 14:05 Antibody Screen NEGATIVE 07/28/20 14:05 Plan Plan of Treatment: follow up in 4 weeks at [facility] for post check
[2020-07-30] MEDS: PRENATAL VITAMIN W DHA CAPSULE PO SCH (09:42)
[2020-07-30] MEDS: FERROUS SULFATE 325 MG TABLET PO SCH ×2 (09:42→17:49)
[2020-07-30] MEDS: DOCUSATE SODIUM 100 MG CAPSULE PO SCH ×2 (09:42→17:49)
[2020-07-30] MEDS: SENNOSIDES/DOCUSATE 8.6-50 MG 1 EACH TABLET PO SCH (09:42)
[2020-07-30] MEDS: FAMOTIDINE 20 MG TABLET PO SCH (09:42)
== END 2020-07-30 18:07 | disposition home or self-care (01) | DRG 806 ==
LOC: LC 12:48 → LR 13:57 → 2S 07-29 01:25
PROVIDERS: ADMIT Obstetrics & Gynecology; ATTEND Obstetrics & Gynecology
PROC: 10E0XZZ Delivery of Products of Conception, External Approach (ICD-10-PCS; principal; 2020-07-28)
DX: O75.2 Pyrexia during labor, not elsewhere classified (principal); D62 Acute posthemorrhagic anemia; Z37.0 Single live birth; O69.1XX0 Labor and delivery complicated by cord around neck, with compression, not applicable or unspecified; O99.02 Anemia complicating childbirth; Z3A.40 40 weeks gestation of pregnancy
CPT/HCPCS: 1967; 36415; 80307; 81005; 84112; 85025; 85027; 86592; 86850; 86900; 86901; J0295; J1756; J2300; J2550; J2590; J2795; J3010; J3490